=== PATIENT | female | born 1965 | race Caucasian/White ===

== ENCOUNTER → 2023-06-14 07:13 | Outpatient (REF) | payer BC, SELFPAY ==
[2023-06-14 08:29] LABS: Blood Urea Nitrogen 15 mg/dl (7-17); Calcium 9.6 mg/dl (8.4-10.2); Carbon Dioxide 30 mmol/L (22-30); Chloride 104 mmol/L (98-107); Glucose 90 mg/dl (70-99); Potassium 4.4 mmol/L (3.5-5.1); Sodium 139 mmol/L (135-145); eGFR > 60.00
== END ==
LOC: REG 07:13
PROVIDERS: ATTENDING PHYSICIAN Nurse Practitioner Primary Care
DX: R79.89 Other specified abnormal findings of blood chemistry (principal)
CPT/HCPCS: 36415; 80048

== ENCOUNTER → 2023-10-16 08:30 | Outpatient (REF) | payer BC, SELFPAY | LOC: WDC 08:30 | PROVIDERS: ATTENDING PHYSICIAN Nurse Practitioner Adult Health; FAMILY PHYSICIAN Nurse Practitioner Primary Care | DX: Z12.31 Encounter for screening mammogram for malignant neoplasm of breast (principal); Z80.3 Family history of malignant neoplasm of breast | CPT/HCPCS: 77063; 77067 ==

== ENCOUNTER → 2024-03-17 08:00 | Outpatient (REF) | payer BC, SELFPAY | LOC: WDC 08:00 | PROVIDERS: ATTENDING PHYSICIAN Nurse Practitioner Adult Health | DX: R92.2 Inconclusive mammogram (principal) | CPT/HCPCS: 76641 ==

== ENCOUNTER → 2024-06-12 07:43 | Outpatient (REF) | payer BC, SELFPAY ==
[2024-06-12 08:17] LABS: % Basophils 1.1 % (0-2); % Eosinophils 4.6 % (0-6); % Immature Granulocytes 0.3 % (0-0.5); % Lymphocytes 36.9 % (20.5-51.1); % Monocytes 8.2 % (1.7-9.3); % Neutrophils 48.9 % (42.2-75.2); Absolute Eosinophils 0.2 10^3/uL (0-0.7); Absolute Lymphocytes 1.4 10^3/uL (1.2-3.4); Absolute Monocytes 0.3 10^3/uL (0.1-0.6); Absolute Neutrophils 1.8 10^3/uL (1.4-6.5); Hematocrit 44.9 % (37.0-47.0); Hemoglobin 14.3 g/dL (12.0-16.0); Mean Corp Hgb Conc. 31.8 g/dL (33.0-37.0); Mean Corpuscular Hgb 26.4 pg (27.0-31.0); Mean Corpuscular Volume 82.8 fL (81.0-99.0); Mean Platelet Volume 8.6 fL (7.4-10.4); Nucleated Red Blood Cells % 0 %; Platelet Count 288 10^3/uL (130-400); Red Blood Cell Count 5.42 10^6/uL (4.20-5.40); Red Cell Dist. Width 13.7 % (11.5-14.5); White Blood Cell Count 3.7 10^3/uL (4.8-10.8)
[2024-06-12 08:52] LABS: ALT (SGPT) 18 U/L (0-35); AST (SGOT) 25 U/L (14-36); Albumin 5.3 g/dl (3.5-5.0); Alkaline Phosphatase 75 U/L (38-126); Blood Urea Nitrogen 19 mg/dl (7-17); Calcium 10.1 mg/dl (8.4-10.2); Carbon Dioxide 30 mmol/L (22-30); Chloride 101 mmol/L (98-107); Glucose 85 mg/dl (70-99); Sodium 139 mmol/L (135-145); Total Cholesterol 310 mg/dl (50-199); Total Protein 7.8 g/dl (6.3-8.2); Triglyceride 66 mg/dl (10-149); Very Low Density Lipoprotein 13 mg/dl (0-30); eGFR > 60.00
[2024-06-12 09:05] LABS: Vitamin D, 25-OH*** 26.1 ng/mL (30-80)
[2024-06-12 09:06] LABS: HDL Cholesterol 128 mg/dl; LDL Cholesterol, Calculated 169 mg/dl
[2024-06-12 09:18] LABS: TSH 1.02 uIU/ml (0.47-4.68)
[2024-06-12 10:26] LABS: Urine Albumin Negative (Neg - Trace); Urine Bilirubin Negative (Negative); Urine Character Clear (Clear); Urine Color Yellow; Urine Glucose Negative (Negative); Urine Ketone Negative (Negative); Urine Leukocyte 2+ (Negative); Urine Nitrite Negative (Negative); Urine Occult Blood Negative (Negative); Urine Urobilinogen Negative (Neg - 1+)
[2024-06-12 11:08] LABS: Urine Mucus Many
[2024-06-12 11:09] LABS: Urine Amorphous Seen; Urine Squamous Cell 0-2 /LPF (Few)
[2024-06-12 11:10] LABS: Urine Red Blood Cell 0-2 /HPF (0-2)
== END ==
LOC: REG 07:43
PROVIDERS: ATTENDING PHYSICIAN Nurse Practitioner Primary Care
DX: Z00.00 Encounter for general adult medical examination without abnormal findings (principal); Z79.899 Other long term (current) drug therapy
CPT/HCPCS: 36415; 80053; 80061; 81003; 81015; 82306; 84443; 85025

== ENCOUNTER → 2024-10-20 07:49 | Outpatient (REF) | payer BC, SELFPAY | LOC: WDC 07:49 | PROVIDERS: ATTENDING PHYSICIAN Nurse Practitioner Adult Health | DX: Z12.31 Encounter for screening mammogram for malignant neoplasm of breast (principal) | CPT/HCPCS: 77063; 77067 ==

== ENCOUNTER → 2024-11-03 10:10 | Outpatient (REF) | payer BC, SELFPAY | LOC: WDC 10:10 | PROVIDERS: ATTENDING PHYSICIAN Nurse Practitioner Adult Health | DX: R92.8 Other abnormal and inconclusive findings on diagnostic imaging of breast (principal) | CPT/HCPCS: 77065 ==

== ENCOUNTER 2024-11-10 06:31 | Day surgery (SDC) | payer BC, SELFPAY | END 2024-11-10 09:47 | disposition home or self-care (01) | LOC: GI 06:31 | PROVIDERS: ATTENDING PHYSICIAN Internal Medicine | DX: Z12.11 Encounter for screening for malignant neoplasm of colon (principal); K64.9 Unspecified hemorrhoids; K57.30 Diverticulosis of large intestine without perforation or abscess without bleeding; D12.3 Benign neoplasm of transverse colon | CPT/HCPCS: 45390; 45385; 88305 ==

== ENCOUNTER → 2024-11-17 06:25 | Outpatient (REF) | payer BC, SELFPAY ==
--- NOTE | 2024-11-17 09:10 | OID.BR.INTR ---
[facility] Breast Navigator - Initial
- -
Date of Contact: 11/17/24
Met with patient. Patient given written information on navigator services available at [facility]. Will follow up as needed per protocol.
== END ==
LOC: WDC 06:25
PROVIDERS: ATTENDING PHYSICIAN Nurse Practitioner Adult Health
DX: R92.1 Mammographic calcification found on diagnostic imaging of breast (principal)
CPT/HCPCS: 19081; 76098; 88305; 88341; 88342; 88360; A4648

== ENCOUNTER → 2024-12-21 10:08 | Outpatient (REF) | payer BC, SELFPAY | LOC: WDC 10:08 | PROVIDERS: ATTENDING PHYSICIAN Surgery | DX: D05.91 Unspecified type of carcinoma in situ of right breast (principal) | CPT/HCPCS: 19281; A4648 ==

== ENCOUNTER 2024-12-22 06:14 | Day surgery (SDC) | payer BC, SELFPAY ==
[2024-12-04 11:58] LABS: Hematocrit 40.1 % (37.0-47.0); Hemoglobin 12.7 g/dL (12.0-16.0); Mean Corp Hgb Conc. 31.7 g/dL (33.0-37.0); Mean Corpuscular Volume 84.4 fL (81.0-99.0); Platelet Count 270 10^3/uL (130-400); Red Cell Dist. Width 14.4 % (11.5-14.5)
[2024-12-04 12:32] LABS: ALT (SGPT) 16 U/L (0-35); AST (SGOT) 20 U/L (14-36); Albumin 4.8 g/dl (3.5-5.0); Alkaline Phosphatase 68 U/L (38-126); Blood Urea Nitrogen 12 mg/dl (7-17); Calcium 9.3 mg/dl (8.4-10.2); Carbon Dioxide 30 mmol/L (22-30); Chloride 104 mmol/L (98-107); Glucose 76 mg/dl (70-99); Potassium 4.5 mmol/L (3.5-5.1); Prealbumin (Transthyretin) 25.5 mg/dl (17.6-36.0); Sodium 140 mmol/L (135-145); Total Protein 7.1 g/dl (6.3-8.2); eGFR 57.88
[2024-12-04 12:52] LABS: Vitamin D, 25-OH*** 30.4 ng/mL (30-80)
[2024-12-04 14:08] VITALS: BMI 21.8
--- NOTE | 2024-12-04 17:05 | PTCARENOTE ---
Abnormal ECG on 12/04/24. Dr. Roldan notified, no further orders at this time.
--- NOTE | 2024-12-17 10:04 | PTCARENOTE ---
Patients 12/04 [id number] [facility] @ Dr. Cota office notified
[2024-12-22] VITALS (7 sets, daily range): BP systolic 102–119; BP diastolic 67–75; BMI 21.8
[2024-12-22] MEDS: TYLENOL 1000 MG PO (11:55)
[2024-12-22] MEDS: LOVENOX 40 MG SC (11:56)
[2024-12-22] MEDS: NORMOSOL-R/PLASMALYTE-A 1000 IV (12:04)
--- NOTE | 2024-12-22 13:13 | W.IMMPOSTOP ---
Surgical Immed Post Op Note
-
Primary Surgeon: Dulce Maria
Assisting Surgeon: None
Pre-op Diagnosis: right breast DCIS
Post-op Diagnosis: Right breast DCIS
Procedure Performed: Right localized lumpectomy
Anesthesia Type: TIVA
Specimen / Cultures: Right lumpectomy and margins
Estimated Blood Loss: 2cc
Complications: None
Operative Findings: clip and reflector in specimen
--- NOTE | 2024-12-22 13:15 | OR.RPT ---
Operative Report
Operative Report
Date of procedure: 12/22/2024
Surgeon: Dulce Maria
Preoperative diagnosis: Right breast DCIS
Postop diagnosis: Right breast DCIS
Procedure: Right localized lumpectomy
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 She presents for right localized lumpectomy. The patient does have subpectoral
implants in place. On the day prior to the procedure the patient presented to the breast imaging center where a Yelitza reflector was placed in the appropriate area. On the day of the procedure she presented to same-day surgical services. She was
prepped and confirmed procedure. She was taken to the operating room and in the supine position the right breast was prepped and draped in usual sterile fashion. ALTE members performed an appropriate timeout procedure.
All tissues were anesthetized with 1% Xylocaine plain taking care to use any sharp instruments only on the skin or in a parallel direction to the chest wall. A curvilinear incision was made sharply over the appropriate area of highest external Yelitza
signal. Skin flaps were elevated with the cautery and a wide lumpectomy was performed using the cautery. Specimen was oriented for the pathologist the time out of body was noted. Specimen radiography confirmed the presence of reflector and clip
within it. Additional margins were harvested for permanent analysis from the posterior, medial, superior, lateral, inferior, and anterior dimensions. He missed these were oriented and send under separate cover.
Hemostasis was maintained with the cautery. Hemoclips were placed in the resection cavity and Marcaine 0.5% plain was instilled into all tissues. This wound was closed using simple interrupted 3-0 plain on deep intermediate and subcutaneous tissue
running subcuticular 4 Monocryl and skin. Surgical glue and a sterile compressive dressing was applied. The patient was transferred to same-day surgical services in stable condition
()
== END 2024-12-22 15:00 | disposition home or self-care (01) ==
LOC: SDS 06:14
PROVIDERS: ATTENDING PHYSICIAN Surgery; FAMILY PHYSICIAN Internal Medicine Geriatric Medicine
DX: D05.11 Intraductal carcinoma in situ of right breast (principal)
CPT/HCPCS: 19301; 36415; 76098; 80053; 82306; 84134; 85027; 88305; 88307; 88341; 88342; 93005